=== PATIENT | female | born 1995 | race American Indian/Alaskan Native ===

== ENCOUNTER 2017-12-05 18:17 | Emergency (ER) | payer SELFPAY ==
[2017-12-05 18:23] VITALS: PULSE 77; TEMP 97.6
[2017-12-05 18:24] VITALS: BMI 24.0
[2017-12-05 18:26] VITALS: BP 135/80; RESP 19; O2SAT 98
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
--- NOTE | 2017-12-06 09:54 | RAD ---
PROCEDURE: Radiographs of the Left Shoulder HISTORY: trauma COMPARISON: No prior. FINDINGS: BONES: No acute fracture. JOINTS: Unremarkable. SOFT TISSUES: Normal. OTHER FINDINGS: None. IMPRESSION: No demonstrated fracture or dislocation.
== END 2017-12-05 20:36 | disposition home or self-care (01) ==
LOC: H.ER 18:17
DX: S43.402A Unspecified sprain of left shoulder joint, initial encounter (principal); X50.9XXA Other and unspecified overexertion or strenuous movements or postures, initial encounter; Y99.0 Civilian activity done for income or pay; K21.9 Gastro-esophageal reflux disease without esophagitis

== ENCOUNTER 2018-10-18 08:22 | Emergency (ER) | payer MEDICAID ==
[2018-10-18 08:23] VITALS: BMI 24.0
[2018-10-18 08:34] VITALS: BP 141/86; PULSE 84; RESP 18; TEMP 98.4
--- NOTE | 2018-10-18 09:10 | ED PDOC ---
HPI: CCC, URI, Sore Throat Time Seen by Provider: 10/18/18 08:34 Chief Complaint (Nursing): ENT Problem Chief Complaint (Provider): ENT Problem History Per: Patient History/Exam Limitations: no limitations Onset/Duration Of Symptoms: Days, Worse Since (yesterday) Current Symptoms Are (Timing): Still Present Additional Complaint(s): Patient is a 23 y/o female with a PMHx of asthma and GERD who presents to the ED for evaluation of a sore throat for the past few days and a fever onset yesterday. Patient admits to having pain while swallowing. Patient denies cough, abdominal pain, and SOB. Patient last took Tylenol yesterday. PCP: Dr. Vivi Cantrell Past Medical History Reviewed: Historical Data, Nursing Documentation, Vital Signs Vital Signs: Last Vital Signs Temp 98.4 F 10/18/18 08:31 Pulse 84 10/18/18 08:31 Resp 18 10/18/18 08:31 BP 141/86 10/18/18 08:31 Pulse Ox 99 10/18/18 08:31 - Medical History PMH: Asthma, GERD - Surgical History Surgical History: No Surg Hx - Family History Family History: States: No Known Family Hx - Home Medications Home Medications: Ambulatory Orders Medication Instructions Recorded Azithromycin [Zithromax] 250 mg PO DAILY #4 tab 10/18/18 Ibuprofen [Motrin] 600 mg PO Q6H PRN #20 tab 10/18/18 - Allergies Allergies/Adverse Reactions: Allergies Allergy/AdvReac Type Severity Reaction Status Date / Time shellfish derived Allergy RASH Verified 12/05/17 18:23 Review of Systems ROS Statement: Except As Marked, All Systems Reviewed And Found Negative ENT: Positive for: Throat Pain (sore; hard to swallow) Respiratory: Negative for: Cough, Shortness of Breath Gastrointestinal: Negative for: Abdominal Pain Physical Exam - Reviewed Nursing Documentation Reviewed: Yes Vital Signs Reviewed: Yes - Physical Exam Appears: Positive for: Non-toxic, No Acute Distress Head Exam: Positive for: ATRAUMATIC, NORMAL INSPECTION, NORMOCEPHALIC Skin: Positive for: Normal Color, Warm Eye Exam: Positive for: Normal appearance, EOMI, PERRL ENT: Positive for: Pharyngeal Erythema, Other (Uvula Midline). Negative for: Tonsillar Exudate Neck: Positive for: Normal, Painless ROM, Supple Cardiovascular/Chest: Positive for: Regular Rate, Rhythm. Negative for: Murmur Respiratory: Positive for: Normal Breath Sounds, Other (handling secretions). Negative for: Respiratory Distress Gastrointestinal/Abdominal: Positive for: Normal Exam, Soft. Negative for: Tenderness Back: Positive for: Normal Inspection. Negative for: L CVA Tenderness, R CVA Tenderness, Vertebral Tenderness Extremity: Positive for: Normal ROM. Negative for: Pedal Edema, Deformity Lymphatic: Positive for: Adenopathy (right cervical) Neurologic/Psych: Positive for: Alert, Oriented, Other (speaking full sentences; no drooling). Negative for: Motor/Sensory Deficits - ECG O2 Sat by Pulse Oximetry: 99 (RA) Pulse Ox Interpretation: Normal Medical Decision Making Medical Decision Making: Time: 834 Plan: Urine (POC) Decadron Inj 10 mg IM Motrin Tab 600 mg PO Rapid Strep Group A Antigen Scribe Attestation: Documented by Sena Baxter, acting as a scribe for Nohemi Haynes MD. Provider Scribe Attestation: All medical record entries made by the Scribe were at my direction and personally dictated by me. I have reviewed the chart and agree that the record accurately reflects my personal performance of the history, physical exam, medical decision making, and the department course for this patient. I have also personally directed, reviewed, and agree with the discharge instructions and disposition. Disposition - Clinical Impression Clinical Impression: Pharyngitis - Disposition Disposition: Routine/Home Disposition Time: 11:54 Condition: IMPROVED Additional Instructions: FOLLOW-UP WITH PMD WITHIN 2 DAYS FOR REEVALUATION. Prescriptions: Azithromycin [Zithromax] 250 mg PO DAILY #4 tab Ibuprofen [Motrin] 600 mg PO Q6H PRN #20 tab PRN Reason: Pain, Moderate (4-7) Instructions: Bacterial Upper Respiratory Infection, Adult Forms: [facility] (Frisian), [facility] ED School/Work Excuse
[2018-10-27 11:02] VITALS: O2SAT 99
== END 2018-10-18 12:10 | disposition home or self-care (01) ==
LOC: H.ER 08:22
DX: J02.9 Acute pharyngitis, unspecified (principal); J45.909 Unspecified asthma, uncomplicated
CPT/HCPCS: 81025; 87070; 87430; 96372; 99282; J1100